=== PATIENT | female | born 2000 | race Caucasian/White ===

== ENCOUNTER 2022-02-23 02:32 | Emergency (ER) | payer BC, SELFPAY ==
[2022-02-23 02:41] VITALS: BP 108/71; PULSE 82; RESP 22; O2SAT 100; BMI 28.8
--- NOTE | 2022-02-23 03:10 | ED.ALCOHOL ---
HPI - Alcohol General Chief Complaint: Alcohol/Intoxication Stated Complaint: Etoh Time Seen by Provider: 02/23/22 02:40 Source: patient and other (Friend) Mode of arrival: ambulatory Limitations: other (Alcohol intoxication) History of Present Illness HPI narrative: 21-year-old female with no notable past medical history presents to the emergency department with alcohol intoxication and abdominal pain. She was at a Halloween green party with friends, drinking excessive amounts of alcohol when she started retching and vomiting, reports that this lasted about 45 minutes, was then followed by abdominal pain. Denies any hematemesis. Feels like it hurts now when she takes a deep breath. Denies any other illicit substance intoxication. Friend is present with her who did accompany her to the green party. States that he had gone outside when he came back and found her vomiting and very intoxicated. She has to come to the emergency department for help with relief of her symptoms. Denies intent of self-harm or ongoing alcoholism. Other than stopping the alcohol, has not tried other interventions to help with symptoms. Past medical history reported only notable for ADHD. Denies any prior surgeries. LMP was about 3 and half weeks ago, expecting her. Within a few days. States her only home medication is Adderall. Denies any allergies. Socially, she does use nicotine, tends to drink only social alcohol Related Data Home Medications Medication Instructions Recorded Confirmed dextroamphetamine-amphetamine 15 02/23/22 mg tablet Allergies Allergy/AdvReac Type Severity Reaction Status Date / Time No Known Drug Allergies Allergy Verified 02/23/22 02:45 Review of Systems Narrative ROS is notable only for the generalized and GI symptoms as described above, otherwise denies times 12. PFSH PFSH Social History Do you use any of these nicotine containing products: Vaping Products How often do you have a drink containing alcohol: monthly or less AUDIT-C Alcohol total score: 1 Non-prescribed substance use: marijuana (any form) Exam Const: Vital Signs, click to edit/add: Vital Signs - 24 hr 02/23/22 02:41 Pulse Rate [Right Pulse Oximeter] 82 Respiratory Rate 22 Blood Pressure [Le ft Upper Arm] 108/71 Pulse Oximetry 100 Oxygen Delivery Me thod Room Air Documenting provider has reviewed patient's vital signs: yes Other: Intoxicated, overweight. Will answer questions appropriately. No respiratory distress or increased work of breathing noted. HENMT: Common normals: normocephalic Head and scalp: normocephalic Mouth: oral and palatal mucosa normal Throat: posterior oropharynx normal Eye: Other: Normal visual gaze and tracking. Neck & C-Spine: Common normals: no lymphadenopathy Resp: Common normals: normal respiratory effort, no use of accessory muscles and clear to auscultation bilaterally Effort & inspection: able to speak in complete sentences Auscultation: clear to auscultation bilaterally Cardio: Common normals: regular rate, regular rhythm, S1 normal heart sound, S2 normal heart sound, no murmurs and peripheral pulses 2+ throughout Rate: regular rate Rhythm: regular rhythm Heart sounds: S1 normal and S2 normal Peripheral pulses: pulses 2+ throughout GI: Common normals: Normal to inspection, nondistended, normoactive bowel sounds present, soft to palpation and no hepatosplenomegaly Palpation: soft and no hepatosplenomegaly Other: Tender to epigastric region but no rebound tenderness nor guarding. Neuro: Speech: speech normal Motor exam: strength 5/5 throughout, no tremor noted and no movement abnormalities noted Psych: Attitude: engaged Mood and affect: euthymic mood Skin: Common normals: no rashes or lesions noted Narrative: No signs of injury or trauma General skin exam: no rashes or lesions noted Course Vital Signs Vital signs: Initial Vital Signs Pulse Rate 82 02/23/22 02:41 Respiratory Rate 22 02/23/22 02:41 Blood Pressure 108/71 02/23/22 02:41 Blood Pressure Mean 83 02/23/22 02:41 Blood Pressure Position Sitting 02/23/22 02:41 Pulse Oximetry 100 02/23/22 02:41 Oxygen Delivery Method 02/23/22 02:41 Vital Signs Pulse Rate 82 02/23/22 02:41 Respiratory Rate 22 02/23/22 02:41 Blood Pressure 108/71 02/23/22 02:41 Pulse Oximetry 100 02/23/22 02:41 Oxygen Delivery Method 02/23/22 02:41 Pulse Rate 82 02/23/22 02:41 Respiratory Rate 22 02/23/22 02:41 Blood Pressure 108/71 02/23/22 02:41 Pulse Oximetry 100 02/23/22 02:41 Oxygen Delivery Method 11/01/22 02:41 MDM - Alcohol MDM Narrative Medical decision making narrative: No signs of breathing impairment, hematemesis or bleeding. Patient can not answer complete questions, moving on her own free will, protecting her airway. Blood work will be beneficial. Offered patient therapeutic interventions such as ibuprofen, Zofran, famotidine. She accepts these. Will reassess an hour of still doing well will be discharged with responsible adult. Patient reassessed 30 minutes after medications, noting improvement of nausea. Would like to stay on rest and let her know that that is not feasible nor appropriate. She can answer appropriate questions, is speaking in full sentences. She has adequate people to stay with her tonight or that she may stay with. She will be discharged home. Discharge Plan Discharge Clinical Impression: Alcoholic intoxication Patient Disposition: Home w/ Parent or Adult Condition: Improved Instructions: Alcohol Intoxication (ED) Additional Instructions: He may continue use of Tylenol and/or ibuprofen for body aches and headache. You may return to work as usual. I do recommend [id number] Prilosec or famotidine for stomach discomfort for the next few days. Okay to use Tums as needed as well. Recheck with her primary care provider if not improving within 2 days. Come back to the ED if your vomiting large amounts of blood, have seizures or unexplained loss of consciousness. Activity Level: No Restrictions Discharge Diet: Regular Prescriptions: No Action dextroamphetamine-amphetamine 15 mg tablet Follow Up/Referrals: Danis Waller MD [Primary Care Provider] - Stand Alone Forms: [employer] Info Instructions
[2022-02-23] MEDS: ONDANSETRON ODT 4 MG TAB PO (03:17)
[2022-02-23] MEDS: FAMOTIDINE 20 MG TABLET PO (03:39)
[2022-02-23 03:55] VITALS: BP 102/80; PULSE 78; RESP 18; O2SAT 98
== END 2022-02-23 04:04 | disposition home or self-care (01) ==
PROVIDERS: Emergency Provider Family Medicine; PCP Surgery
DX: F10.129 Alcohol abuse with intoxication, unspecified (principal); R10.9 Unspecified abdominal pain; F17.290 Nicotine dependence, other tobacco product, uncomplicated
CPT/HCPCS: 99282; 99283; A9270

== ENCOUNTER 2022-03-27 20:46 | Emergency (ER) | payer BC, SELFPAY ==
[2022-03-27 21:17] VITALS: BP 131/74; PULSE 80; RESP 22; TEMP 36.8; O2SAT 97; BMI 27.5
[2022-03-27 21:58] LABS: PCR FLU A Negative PCR FLU A (Negative); PCR FLU B Negative PCR FLU B (Negative); PCR RSV POSITIVE PCR RSV (Negative)
[2022-03-27 22:01] LABS: SARS PCR* Negative SARS-CoV-2 (Negative)
--- NOTE | 2022-03-27 22:03 | CRLHL7_ITS ---
For Patients: As a result of the Cures Act, medical imaging exams and procedure reports are released immediately into your electronic medical record. You may view this report before your referring provider. If you have questions, please contact your health care provider. INDICATION: Cough. TECHNIQUE: Chest 1 views. COMPARISON: October 27, 2019. FINDINGS: Cardiovascular and mediastinum: Heart size and vasculature are normal in caliber and appearance. Lungs and pleural spaces: Lungs are clear. No sign of infiltrate or mass. No sign of pleural effusion. No pneumothorax. Bones and soft tissues: No significant findings. IMPRESSION: No acute findings and no significant changes from the prior exam. Dictated by Benito Casas MD @ 03/27/2022 11:09:01 PM (Electronically Signed)
--- NOTE | 2022-03-27 22:05 | ED.GENADULT ---
HPI - General Adult General Chief complaint: Cough Stated complaint: Coughing up flem causing gagging, Fogginess Time Seen by Provider: 03/27/22 21:50 History of Present Illness HPI narrative: 21-year-old young woman presenting here with significant other with complaint of cough and just generally feeling unwell. Thick phlegm she keeps coughing up. This is after she has somewhat crackly in her lungs. Coughing this up then diminishes for a while but then it comes back. Prompts her to gag. General sense of nausea though. Sixth day of illness or so. Thought had gotten better a couple days ago and now worse. Seen in urgent care yesterday testing negative for influenza and COVID. She is quite thirsty. Has a headache. Mom think she needs fluids IV fluids. Mom thinks she has bronchitis. No chest pain. Feels like vision is foggy. Related Data Home Medications Medication Instructions Recorded Confirmed dextroamphetamine-amphetamine 15 02/23/22 03/27/22 mg tablet Previous Rx's Medication Instructions Recorded benzonatate 200 mg capsule 200 mg PO BID-TID PRN cough #14 03/27/22 caps Allergies Allergy/AdvReac Type Severity Reaction Status Date / Time No Known Drug Allergies Allergy Verified 03/27/22 12:21 Review of Systems Status of ROS: Reports: 10 or more systems reviewed and unremarkable except as noted in History and below [facility] Social History Smoking Status: Never smoker Do you use any of these nicotine containing products: Vaping Products How often do you have a drink containing alcohol: monthly or less AUDIT-C Alcohol total score: 1 Non-prescribed substance use: marijuana (any form) Exam Narrative: Exam Narrative: Pleasant. NAD. Regular cough. Talkative. [place] hair. Cranial nerves 2-12 intact. Does sound congested in the nasopharynx. No facial swelling erythema or tenderness. Oropharynx is sticky. Mildly erythematous. No exudate or asymmetry. Lungs with inspiratory crepitus in left greater than right bases. Generally tender abdomen causing her to wince extremely. Extremities are without edema. Well perfused. Neck is supple. A little sore in the trapezial and paracervical musculature. Const: Vital Signs, click to edit/add: Vital Signs - 24 hr 03/27/22 21:17 Temperature 98.2 F Pulse Rate [Pulse Oximeter] 80 Respiratory Rate 22 Blood Pressure [Ri ght Upper Arm] 131/74 Pulse Oximetry 97 Documenting provider has reviewed patient's vital signs: yes Course Vital Signs Vital signs: Initial Vital Signs Temperature 98.2 F 03/27/22 21:17 Temperature Source Temporal Artery Scan 03/27/22 21:17 Pulse Rate 80 03/27/22 21:17 Respiratory Rate 22 03/27/22 21:17 Blood Pressure 131/74 03/27/22 21:17 Blood Pressure Mean 93 03/27/22 21:17 Blood Pressure Position Sitting 03/27/22 21:17 Pulse Oximetry 97 03/27/22 21:17 Vital Signs Temperature 98.2 F 03/27/22 21:17 Pulse Rate 80 03/27/22 21:17 Respiratory Rate 22 03/27/22 21:17 Blood Pressure 131/74 03/27/22 21:17 Pulse Oximetry 97 03/27/22 21:17 Temperature 98.2 F 03/27/22 21:17 Pulse Rate 80 03/27/22 21:17 Respiratory Rate 22 03/27/22 21:17 Blood Pressure 131/74 03/27/22 21:17 Pulse Oximetry 97 03/27/22 21:17 Medical Decision Making MDM Narrative Medical decision making narrative: Appears vitally well. Triple screen indeed positive for RSV. This had not been screened apparently prior. Chest x-ray by my read looks unremarkable. After some IV hydration she reports feeling markedly improved. Is even more energetic. Lab Data Labs: Lab Results 03/27/22 Range/Units 21:12 SARS-CoV-2 (PCR) Negative SARS-CoV-2 (Negative) Influenza Type A (PCR) Negative PCR FLU A (Negative) Influenza Type B (PCR) Negative PCR FLU B (Negative) RSV (PCR) POSITIVE PCR RSV A (Negative) Discharge Plan Discharge Clinical Impression: Respiratory syncytial virus (RSV) bronchiolitis, Dehydration Patient Disposition: Home w/ Parent or Adult Condition: Improved Additional Instructions: Focus on hydration. Sleeping under the mist of a cool mist humidifier might be helpful. Menthol vapors. Zofran and prednisone from [facility]. Prescriptions: No Action benzonatate 200 mg capsule 200 mg PO BID-TID PRN (Reason: cough) Qty: 14 0RF dextroamphetamine-amphetamine 15 mg tablet Follow Up/Referrals: Danis Waller MD [Primary Care Provider] - Stand Alone Forms: [employer] Info Instructions
[2022-03-27] MEDS: IBUPROFEN 200 MG TABLET 600 MG PO (22:33)
[2022-03-27] MEDS: ONDANSETRON 2 MG/ML inj 4 MG IVP (22:33)
[2022-03-27] MEDS: 0.9 % SODIUM CHLORIDE 1000 ml 1,000 ML IV (22:33)
--- OUTSIDE RECORDS SUMMARY | 2022-03-27 22:39 | XMS_ITS | Encounter Summary ---
:2000 Author Organization [facility] Address [address] [place] [id number] Care Team Providers Name Role Phone No Ref-Primary, Physician Primary Care Provider [phone] Reason for Visit Diagnostic Imaging XR (Routine) - Pending Review Specialty Diagnoses / Procedures Referred By Contact Refer red To Contact Diagnoses Katy Moreno MD Procedures XR Chest [address] [facility] [address] [place], [place] [address] Referral ID Status Reason Start Date Expiration Date Visits V isits Requested Authorized [id number] Pending 04/06/2021 04/06/2022 1 1 Review Encounter Details Date Type Department Care Team Description 04/06/2021 Ancillary Procedure [facility] Katy Riley MD [place] [address] [place] [id number] [facility] [address] [place] [address] [place], [place] [phone] [id number] Social History Tobacco Use Types Packs/Day Years Used Date Smoking Tobacco: Never Smokeless Tobacco: Never Alcohol Use Standard Drinks/Week Comments Not Currently 0 (1 standard drink = 0.6 oz pure alcoho l) Sex Assigned at Date Recorded Not on file COVID-19 Exposure Response Date Recorded In the last month, have you been in contact with No / Unsure 04/06/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 documented as of this encounter Plan of Treatment Not on filedocumented as of this encounter Procedures Procedure Name Priority Date/Time Associated Diagnosis Comme nts XR CHEST 2 VIEWS Routine 04/06/2021 9:07 PM [place] Resul ts for this LINKING MACHINE OPERATOR procedure are i n the results section. documented in this encounter Results XR Chest 2 Views (04/06/2021 9:07 PM LINKING MACHINE OPERATOR) Anatomical Region Laterality Modality Chest Computed Radiography Specimen (Source) Anatomical Collection Method Collection Time Re ceived Time Location / / Volume Laterality 04/06/2021 8:54 PM LINKING MACHINE OPERATOR Impressions 04/06/2021 9:30 PM LINKING MACHINE OPERATOR IMPRESSION: Negative chest. Narrative 04/06/2021 9:30 PM LINKING MACHINE OPERATOR EXAM: XR CHEST 2 VW LOCATION: [facility] DATE/TIME: 04/06/2021 8:54 PM INDICATION: ??Chills COMPARISON: None. Procedure Note Ananda Bill MD - 04/06/2021Formatt ing of this note might be different from the original. EXAM: XR CHEST 2 VW LOCATION: [facility] DATE/TIME: 04/06/2021 8:54 PM INDICATION: Chills COMPARISON: None. IMPRESSION: Negative chest. Katy Borjas MD IMG DIAGNOSTIC IMAGING ORDER BARRY documented in this encounter Visit Diagnoses Diagnosis Chills Chills (without fever) documented in this encounter Additional Health Concerns Infection Onset Date Last Indicated Resolved Time Rule Out COVID-19 04/06/2021 04/06/2021 04/08/2021 10: 41 AM LINKING MACHINE OPERATOR documented as of this encounter Care Teams Street Light Servicer Relationship Specialty Start Date End Date No Ref-Primary, Physician PCP - General 04/06/21 documented as of this encounter
--- OUTSIDE RECORDS SUMMARY | 2022-03-27 22:39 | XMS_ITS | Encounter Summary ---
:2000 Author Organization [facility] Address [address] [facility] [place] [address] Care Team Providers Name Role Phone No Ref-Primary, Physician Primary Care Provider [phone] Reason for Referral Diagnostic Imaging XR (Routine) - Pending Review Specialty Diagnoses / Procedures Referred By Contact Refer red To Contact Diagnoses Katy Moreno MD Procedures XR Chest 2 Views [address] [place], [place] [address] Referral ID Status Reason Start Date Expiration Date Visits V isits Requested Authorized [id number] Pending 04/06/2021 04/06/2022 1 1 Review AINER FINISHING INSPECTOR Reason for Visit Reason Comments URI Chest Pain tightness Encounter Details Date Type Department Care Team Description 04/06/2021 Office Visit [facility] Katy Borjas, Fatigue , unspecified type (Primary Dx); Urgent Care Candis crawford MD SOB (shortness of breath); [address] Chest pain on breathing; [place], [place] [address] [place]; [address] [place], [place] Cold sweat [phone] [id number] Social History Tobacco Use Types Packs/Day Years Used Date Smoking Tobacco: Never Smokeless Tobacco: Never Alcohol Use Standard Drinks/Week Comments Not Currently 0 (1 standard drink = 0.6 oz pure alcoho l) Sex Assigned at Date Recorded Not on file COVID-19 Exposure Response Date Recorded In the last month, have you been in contact with No / Unsure 04/06/2021 7:45 PM CONTAINER FINISHING INSPECTOR someone who was confirmed or suspected to have Coronavirus / COVID-19? documented as of this encounter Last Filed Vital Signs Vital Sign Reading Time Taken Comments Blood Pressure 120/60 04/06/2021 8:36 PM CONTAINER FINISHING INSPECTOR Pulse 83 04/06/2021 8:36 PM CONTAINER FINISHING INSPECTOR Temperature 36.9 ??C (98.5 ??F) 04/06/2021 8:36 PM CONTAINER FINISHING INSPECTOR Respiratory Rate 16 04/06/2021 8:36 PM CONTAINER FINISHING INSPECTOR Oxygen Saturation 99% 04/06/2021 8:36 PM CONTAINER FINISHING INSPECTOR Inhaled Oxygen Concentration - - Weight 92.2 kg (203 lb 4.8 oz) 04/06/2021 8:36 PM CONTAINER FINISHING INSPECTOR Height - - Body Mass Index - - documented in this encounter Progress Notes Katy Borjas MD - 04/06/2021 8:15 PM CST Chief Complaint Patient presents with ??? URI ??? Chest Pain tightness Initial differential diagnosis included but was not restricted to Differential Diagnosis: URI Adult/Peds: Bronchitis-viral, Influenza, Pneumonia, Viral pharyngitis, Viral syndrome and Viral upper respiratory illness, costochondritis, Medical Decision Making: ASSESMENT AND PLAN Agustina was seen today for uri and chest pain. Diagnoses and all orders for this visit: Fatigue, unspecified type - XR Chest 2 Views SOB (shortness of breath) - XR Chest 2 Views Chest pain on breathing Chills - XR Chest 2 Views; Future - CBC with platelets and differential; Future - ESR: Erythrocyte sedimentation rate; Future - CBC with platelets and differential - ESR: Erythrocyte sedimentation rate Cold sweat Other orders - Symptomatic COVID-19 Virus (Coronavirus) by PCR Nose - Influenza A/B antigen Tylenol, Fluids and Rest Routine discharge counseling was given to the patient and the patient understands that worsening, changing or persistent symptoms should prompt an immediate call or follow up with their primary physician or the emergency department. The importance of appropriate follow up was also discussed with the patient. I have reviewed the nursing notes. Review of the result(s) of each unique test - X-Ray was done, my findings are: no infiltrate noted Time spent on the date of the encounter doing chart review, review of test results, interpretation of tests, patient visit and documentation see orders in Epic Pt verbalized and agreed with the plan and is aware of the worsening symptoms for which would need to follow up . Pt was stable during time of discharge from the clinic SUBJECTIVE Agustina Castro is a 20 year old female presenting with a chief complaint of Chief Complaint Patient presents with ??? URI ??? Chest Pain tightness Agustina Castro is a 20 year old female presenting with a chief complaint of chest pain for 2 days On and off now all the time , hs some chills , some brain fog . She is an established patient of [facility]. Onset of symptoms was 2 day(s) ago. He also describes some mid chest pain which she describes more like chest tightness. Has been also noticing some chills for last 2 days. Have history of Covid a yearback. Course of illness is worsening. Severity moderate Current and Associated symptoms: chills Treatment measures tried include None tried. Predisposing factors include None. No past medical history on file. No current outpatient medications on file. Social History Tobacco Use ??? Smoking status: Never Smoker ??? Smokeless tobacco: Never Used Substance Use Topics ??? Alcohol use: Not Currently No family history on file. ROS: 10 point ROS of systems including Constitutional, Eyes,Cardiovascular, Gastroenterology, Genitourinary, Integumentary, Psychiatric ,neurological were all negative except for pertinent positives noted in my HPI OBJECTIVE: BP 120/60 (BP Location: Right arm, Patient Position: Chair, Cuff Size: Adult Large) Pulse 83 Temp 98.5 ??F (36.9 ??C) (Oral) Resp 16 Wt 92.2 kg (203 lb 4.8 oz) SpO2 99% GENERAL APPEARANCE: healthy, alert and no distress EYES: EOMI, PERRL, conjunctiva clear HENT: ear canals and TM's normal. Nose and mouth without ulcers, erythema or lesions NECK: supple, nontender, no lymphadenopathy RESP: lungs clear to auscultation - no rales, rhonchi or wheezes CV: regular rates and rhythm, normal S1 S2, no murmur noted PSYCH: mentation appears normal Physical Exam (Note was completed, in part, with [employer] voice-recognition software. Documentation reviewed, but some grammatical, spelling, and word errors may remain.) Katy Borjas MD on 04/06/2021 at 9:08 PM AINER FINISHING INSPECTOR documented in this encounter Plan of Treatment Not on filedocumented as of this encounter Procedures Procedure Name Priority Date/Time Associated Comments Diagnosis CBC WITH PLATELETS AND Routine 04/06/2021 9:10 PM [place] Results for this DIFFERENTIAL CONTAINER FINISHING INSPECTOR procedure are i n the results section. CBC WITH PLATELETS & Routine 04/06/2021 9:10 PM [place] R esults for this DIFFERENTIAL CONTAINER FINISHING INSPECTOR procedure are i n the results section. ERYTHROCYTE Routine 04/06/2021 9:10 PM [place] Results f or this SEDIMENTATION RATE CONTAINER FINISHING INSPECTOR procedure are in AUTO the results section. INFLUENZA A/B ANTIGEN Routine 04/06/2021 8:39 PM Results for this CONTAINER FINISHING INSPECTOR procedure are i n the results section. COVID-19 VIRUS Routine 04/06/2021 8:38 PM Results for this (CORONAVIRUS) BY PCR CONTAINER FINISHING INSPECTOR procedu re are in the results section. documented in this encounter Results CBC with platelets and differential (04/06/2021 9:10 PM CONTAINER FINISHING INSPECTOR) P athologist Signature WBC Count 7.3 4.0 - 11.0 04/06/2021 [facility] 10e3/uL 9:14 PM CONTAINER FINISHING INSPECTOR RBC Count 4.36 3.80 - 04/06/2021 [facility] 5.20 9:14 PM CONTAINER FINISHING INSPECTOR 10e6/uL Hemoglobin 13.2 11.7 - 04/06/2021 [facility] 15.7 g/dL 9:14 PM CONTAINER FINISHING INSPECTOR Hematocrit 40.1 35.0 - 04/06/2021 [facility] 47.0 % 9:14 PM CONTAINER FINISHING INSPECTOR MCV 92 78 - 100 04/06/2021 [facility] fL 9:14 PM CONTAINER FINISHING INSPECTOR MCH 30.3 26.5 - 04/06/2021 [facility] 33.0 pg 9:14 PM CONTAINER FINISHING INSPECTOR MCHC 32.9 31.5 - 04/06/2021 [facility] 36.5 g/dL 9:14 PM CONTAINER FINISHING INSPECTOR RDW 13.0 10.0 - 04/06/2021 [facility] 15.0 % 9:14 PM CONTAINER FINISHING INSPECTOR Platelet Count 218 150 - 450 04/06/2021 [facility] 10e3/uL 9:14 PM CONTAINER FINISHING INSPECTOR % Neutrophils 62 % 04/06/2021 [facility] 9:14 PM CONTAINER FINISHING INSPECTOR % Lymphocytes 29 % 04/06/2021 [facility] 9:14 PM CONTAINER FINISHING INSPECTOR % Monocytes 6 % 04/06/2021 [facility] 9:14 PM CONTAINER FINISHING INSPECTOR % Eosinophils 3 % 04/06/2021 [facility] 9:14 PM CONTAINER FINISHING INSPECTOR % Basophils 0 % 04/06/2021 [facility] 9:14 PM CONTAINER FINISHING INSPECTOR Absolute 4.5 1.6 - 8.3 04/06/2021 [facility] Neutrophils 10e3/uL 9:14 PM CONTAINER FINISHING INSPECTOR Absolute 2.1 0.8 - 5.3 04/06/2021 [facility] Lymphocytes 10e3/uL 9:14 PM CONTAINER FINISHING INSPECTOR Absolute 0.4 0.0 - 1.3 04/06/2021 [facility] Monocytes 10e3/uL 9:14 PM CONTAINER FINISHING INSPECTOR Absolute 0.2 0.0 - 0.7 04/06/2021 [facility] Eosinophils 10e3/uL 9:14 PM CONTAINER FINISHING INSPECTOR Absolute 0.0 0.0 - 0.2 04/06/2021 [facility] Basophils 10e3/uL 9:14 PM CONTAINER FINISHING INSPECTOR Specimen Anatomical Collection Method / Collection Time Recei nicki Time (Source) Location / Volume Laterality Blood STRUCTURE OF RIGHT Venipuncture / 04/06/2021 9:10 03/25 9:10 UPPER LIMB / Unknown PM CONTAINER FINISHING INSPECTOR PM CONTAINER FINISHING INSPECTOR Unknown Katy Borjas MD LAB - BLOOD ORDERABLES Performing Organization Address City/State/ZIP Code [place] [address] Lab [address] [facility] (no room number, 1st floor of clinic) [place] [address], [facility] [address] [facility] (no room number, 1st floor of clinic) ESR: Erythrocyte sedimentation rate (04/06/2021 9:10 PM CONTAINER FINISHING INSPECTOR) [facility] gist Method Time Signature Erythrocyte 6 0 - 20 04/06/2021 [facility] Sedimentation Rate mm/hr 9:21 PM CONTAINER FINISHING INSPECTOR Specimen Anatomical Collection Method / Collection Time Recei nicki Time (Source) Location / Volume Laterality Blood STRUCTURE OF RIGHT Venipuncture / 04/06/2021 9:10 03/25 9:10 UPPER LIMB / Unknown PM CONTAINER FINISHING INSPECTOR PM CONTAINER FINISHING INSPECTOR Unknown Katy Borjas MD LAB - BLOOD ORDERABLES Performing Organization Address City/State/ZIP Code Phon e Number [facility] [place] [address] Lab [address] [facility] (no room number, 1st floor of clinic) [place] [address], [facility] [address] [facility] (no room number, 1st floor of clinic) XR Chest 2 Views (04/06/2021 9:07 PM CONTAINER FINISHING INSPECTOR) Anatomical Region Laterality Modality Chest Computed Radiography Specimen (Source) Anatomical Collection Method Collection Time Re ceived Time Location / / Volume Laterality 04/06/2021 8:54 PM CONTAINER FINISHING INSPECTOR Impressions 04/06/2021 9:30 PM CONTAINER FINISHING INSPECTOR IMPRESSION: Negative chest. Narrative 04/06/2021 9:30 PM CONTAINER FINISHING INSPECTOR EXAM: XR CHEST 2 VW LOCATION: [facility] DATE/TIME: 04/06/2021 8:54 PM INDICATION: ??Chills COMPARISON: None. Procedure Note Ananda Bill MD - 04/06/2021Formatt ing of this note might be different from the original. EXAM: XR CHEST 2 VW LOCATION: [facility] DATE/TIME: 04/06/2021 8:54 PM INDICATION: Chills COMPARISON: None. IMPRESSION: Negative chest. Katy Borjas MD IMG DIAGNOSTIC IMAGING ORDER BARRY Influenza A/B antigen (04/06/2021 8:39 PM CONTAINER FINISHING INSPECTOR) Analysis Performed At Patho logist Time Signature Influenza A Negative Negative 04/06/2021 [facility] antigen 9:05 PM CONTAINER FINISHING INSPECTOR Influenza B Negative Negative 04/06/2021 [facility] antigen 9:05 PM CONTAINER FINISHING INSPECTOR Specimen Anatomical Collection Method Collection Time Receive d Time (Source) Location / / Volume Laterality Swab NASAL STRUCTURE / Non-blood 04/06/2021 8:39 PM 03/25 8:48 Unknown Collection / CONTAINER FINISHING INSPECTOR PM CONTAINER FINISHING INSPECTOR Unknown Narrative [facility] - 04/06/2021 9:05 PM CONTAINER FINISHING INSPECTOR Test results must be correlated with cli nical data. If necessary, results should be confirmed by a molecular assay or viral culture. Katy Borjas MD LAB - MICRO GENERAL ORDERABL ES Performing Organization Address City/State/ZIP Code Phon e Number LABORATORY [facility] [address] Lab [address] [facility] (no room number, 1st floor of clinic) [place] [address], [facility] [address] [facility] (no room number, 1st floor of clinic) Symptomatic COVID-19 Virus (Coronavirus) by PCR Nose (04/06/2021 8:38 PM CONTAINER FINISHING INSPECTOR) [facility] Method Time Signature SARS CoV2 PCR Negative Negative, 04/08/2021 [facility] Testing sent to 10:41 AM LABORATORY reference lab. CONTAINER FINISHING INSPECTOR Results will be returned via unsolicited result Comment: NEGATIVE: SARS-CoV-2 (COVID-19) RNA not detected, presumed negative. Specimen Anatomical Collection Method Collection Time Receive d Time (Source) Location / / Volume Laterality Swab NASAL STRUCTURE / Non-blood 04/06/2021 8:38 PM 03/25 8:53 Unknown Collection / CONTAINER FINISHING INSPECTOR PM CONTAINER FINISHING INSPECTOR Unknown Narrative [facility] - 04/08/2021 10:41 AM CONTAINER FINISHING INSPECTOR Testing was performed using the james SARS-CoV-2 assay on the james [id number] System. This test should be ordered for the detection of SARS-CoV-2 in individuals who meet SARS- CoV-2 clinical and/or epidemiological criteria. Test performan ce is unknown in asymptomatic patients. This test is for in vitro diag nostic use under the FDA EUA for laboratories certified under CLIA to perform high and/or moderate complexity testing. This test has not be en FDA cleared or approved. A negative result does not rule out the pr esence of PCR inhibitors in the specimen or target RNA in concentrat ion below the limit of detection for the assay. The possibility of a false negative should be considered if the patient's recent ex posure or clinical presentation suggests COVID-19. This phani t was validated by the [facility] Infectious Diseases Diag nostic Laboratory. This laboratory is certified under the Clinic al Laboratory Improvement Amendments of 1988 (CLIA-88) as qualifie d to perform high and/or moderate complexity laboratory testing. Katy Borjas MD LAB - MICRO GENERAL ORDERABL ES Performing Organization Address City/State/ZIP Code Phon e Number [facility] [place] [address] Diag. Lab [address] [facility] [place], [address] [facility] Infectious [place], [place] [phone] Diseases Diagnostic [id number], [facility] Lab ([facility]DL) [address] [facility], [address] documented in this encounter Visit Diagnoses Diagnosis Fatigue, unspecified type - Primary SOB (shortness of breath) Shortness of breath Chest pain on breathing Painful respiration Chills Chills (without fever) Cold sweat Chills Chills (without fever) documented in this encounter Additional Health Concerns Infection Onset Date Last Indicated Resolved Time Rule Out COVID-19 04/06/2021 04/06/2021 04/08/2021 10: 41 AM CONTAINER FINISHING INSPECTOR documented as of this encounter Care Teams Factory Assembler Relationship Specialty Start Date End Date No Ref-Primary, Physician PCP - General 04/06/21 documented as of this encounter
--- OUTSIDE RECORDS SUMMARY | 2022-03-27 22:39 | XMS_ITS | Encounter Summary ---
:2000 Author Organization [facility] Address [address] [place] [address] Care Team Providers Name Role Phone No Ref-Primary, Physician Primary Care Provider [phone] Encounter Details Date Type Department Care Team Description 04/06/2021 Travel Social History Tobacco Use Types Packs/Day Years Used Date Smoking Tobacco: Never Smokeless Tobacco: Never Alcohol Use Standard Drinks/Week Comments Not Currently 0 (1 standard drink = 0.6 oz pure alcoho l) Sex Assigned at Date Recorded Not on file COVID-19 Exposure Response Date Recorded In the last month, have you been in contact with No / Unsure 04/06/2021 7:45 PM MOLD BUNCH TRIMMER someone who was confirmed or suspected to have Coronavirus / COVID-19? documented as of this encounter Plan of Treatment Not on filedocumented as of this encounter Visit Diagnoses Not on filedocumented in this encounter Additional Health Concerns Infection Onset Date Last Indicated Resolved Time Rule Out COVID-19 04/06/2021 04/06/2021 04/08/2021 10: 41 AM MOLD BUNCH TRIMMER documented as of this encounter Care Teams Stemhole Borer And Topper Relationship Specialty Start Date End Date No Ref-Primary, Physician PCP - General 04/06/21 documented as of this encounter
--- OUTSIDE RECORDS SUMMARY | 2022-03-27 22:39 | XMS_ITS | Clinical Summary ---
:2000 Author Organization [facility] Address [address] [place] [address] Care Team Providers Name Role Phone No Ref-Primary, Physician Primary Care Provider [phone] Allergies No known active allergies Medications No known medications Social History Tobacco Use Types Packs/Day Years Used Date Smoking Tobacco: Never Smokeless Tobacco: Never Alcohol Use Standard Drinks/Week Comments Not Currently 0 (1 standard drink = 0.6 oz pure alcoho l) Sex Assigned at Date Recorded Not on file Last Filed Vital Signs Vital Sign Reading Time Taken Comments Blood Pressure 120/60 04/06/2021 8:36 PM GOLF CLUB REPAIRER Pulse 83 04/06/2021 8:36 PM GOLF CLUB REPAIRER Temperature 36.9 ??C (98.5 ??F) 04/06/2021 8:36 PM GOLF CLUB REPAIRER Respiratory Rate 16 04/06/2021 8:36 PM GOLF CLUB REPAIRER Oxygen Saturation 99% 04/06/2021 8:36 PM GOLF CLUB REPAIRER Inhaled Oxygen Concentration - - Weight 92.2 kg (203 lb 4.8 oz) 04/06/2021 8:36 PM GOLF CLUB REPAIRER Height - - Body Mass Index - - Plan of Treatment Health Maintenance Due Date Last Done Comments ADVANCE CARE PLANNING 2000 ANNUAL REVIEW OF HM ORDERS 2000 CHLAMYDIA SCREENING 2000 YEARLY PREVENTIVE VISIT 2000 COVID-19 Vaccine (#1) 02/24/2001 HEPATITIS B IMMUNIZATION (3 08/31/2002 07/05/2002, of 3 - 3-dose series) 05/11/2002 DTAP/TDAP/TD IMMUNIZATION (2 02/03/2010 01/06/2010 - Td or Tdap) HPV IMMUNIZATION (1 - 2-dose 08/25/2011 series) HIV SCREENING 08/25/2015 HEPATITIS C SCREENING 2018 PHQ-2 (once per calendar 04/25/2021 year) PAP 2021 INFLUENZA VACCINE (#1) 2021 IPV IMMUNIZATION Aged Out 07/05/2002, No longer eligi ble based 05/11/2002, on patient's age to 05/10/2001 complete this to pic MENINGITIS IMMUNIZATION Aged Out No longe r eligible based on patient's age to complete this to pic Pneumococcal Vaccine: Aged Out No longer eligible based Pediatrics (0 to 5 Years) and on patient's age to At-Risk Patients (6 to 64 comple te this topic Years) Insurance Payer Benefit Plan / Subscriber ID Effective Dates Phone Addre ss Type Group [place] [id number] 2020-Present [phone] [address] [address] [place] [address] Care Teams Compressor Station Chief Engineer Relationship Specialty Start Date End Date No Ref-Primary, Physician PCP - General 04/06/21
--- OUTSIDE RECORDS SUMMARY | 2022-03-27 22:40 | XMS_ITS | Clinical Summary ---
:2000 Author Organization [facility] [place] [address] Care Team Providers Name Role Phone Danis Waller MD Primary Care Provider Allergies No known active allergies Medications Medication Sig Dispensed Refills Start Date End Date Status copper Inject 1 Device 0 08/14/2020 Act estiven intrauterine intrauterine one device (PARAGARD) time. Amphetamine-Dextro Take 1 tablet by 60 Tablet 0 10/09/2021 Active amphetamine mouth 2 times (ADDERALL) 15 mg daily tabletIndications: Attention deficit hyperactivity disorder (ADHD), unspecified ADHD type ketoconazole 2% Shampoo the hair 120 mL 0 10/15/2021 Active shampoo (NIZORAL) thoroughly each 2 % day for 3 days. shampooIndications : Tinea versicolor Amphetamine-Dextro TAKE ONE TABLET 60 Tablet 0 05/23/2022 Active amphetamine BY MOUTH TWICE (ADDERALL) 15 mg DAILY tabletIndications: Attention deficit hyperactivity disorder (ADHD), unspecified ADHD type Amphetamine-Dextro Take 1 tablet by 60 Tablet 0 03/24/2022 Active amphetamine mouth 2 times 2 (ADDERALL) 15 mg daily tabletIndications: Attention deficit hyperactivity disorder (ADHD), unspecified ADHD type Amphetamine-Dextro Take 1 tablet by 60 Tablet 0 04/23/2022 Active amphetamine mouth 2 times 3 (ADDERALL) 15 mg daily tabletIndications: Attention deficit hyperactivity disorder (ADHD), unspecified ADHD type Amphetamine-Dextro Take 1 tablet by 60 Tablet 0 02/19/2022 Discontinued amphetamine mouth 2 times 2 (ADDERALL) 15 mg daily tabletIndications: Attention deficit hyperactivity disorder (ADHD), unspecified ADHD type Active Problems Problem Noted Date Attention deficit hyperactivity disorder (ADHD) 2021 ASCUS with positive high risk HPV cervical 11/06/2021 Overview: 11/06/21 ASCUS/HPV+, 16/18 negative. Plan : Pap due 10/2022 Disordered eating 02/15/2018 Resolved Problems Problem Noted Date Resolved Date Pica 02/15/2018 11/06/2021 Encounters Date Type Specialty Care Team Description 03/24/2022 Refill Danis Waller MD Refi ll Request (Amphetamine-de xtroamphetami ne) 03/03/2022 Office Visit Joanna Pack, Screen ing (new partner) PA 03/03/2022 Travel from Last 3 Months Immunizations Name Administration Dates Next Due DT (Age < 7 years) 07/20/2002, 05/25/2002, 10/09/2001 HIB PRP-OMP (PedvaxHIB) 05/10/2001 HIB-HepB (Comvax) 07/05/2002, 05/11/2002 Hib Conjugate, Unspecified 07/05/2002, 05/11/2002 Inactivated Polio Vaccine 07/05/2002, 05/11/2002, 05/10/2001 MMR 09/03/2002 Td, Preservative Free (age >= 7 Years) 01/06/2010, 0 Family History Medical History Relation Name Comments ADD / ADHD Brother 1 Asperger's syndrome Brother 1 Asperger's syndrome Brother 2 Asthma Brother 2 ADD / ADHD Brother 3 Seizures Brother 4 Asperger's syndrome Brother 5 ADD / ADHD Sister 1 Asperger's syndrome Sister 1 Multiple sclerosis Sister 1 PTSD Sister 1 Relation Name Status Comments Brother 1 Alive Brother 2 Alive Brother 3 Alive Brother 4 Alive Brother 5 Alive Father Alive Mother Alive Sister 1 Alive Sister 2 Alive Social History Tobacco Use Types Packs/Day Years Used Date Never Smoker Smokeless Tobacco: Never Used Tobacco Cessation: Counseling Given: Yes Alcohol Use Standard Drinks/Week Comments Yes 0 (1 standard drink = 0.6 oz pure alcoho l) Sex Assigned at Date Recorded Not on file COVID-19 Exposure Response Date Recorded In the last 10 days, have you been in contact with No / Unsu re 03/03/2022 1:15 PM [employer] someone who was confirmed or suspected to have Coronavirus/COVID-19? Obstetrics History Para Term AB IAB SAB Ectopic Multiple Living Live Births 0 0 0 0 0 0 0 0 0 0 0 Last Filed Vital Signs Vital Sign Reading Time Taken Comments Blood Pressure 108/74 03/03/2022 1:43 PM [employer] Pulse 84 03/03/2022 1:20 PM [employer]AT DES[employer] Temperature 36.8 ??C (98.2 ??F) 12/01/2021 2:43 PM CDT Respiratory Rate 18 01/06/2010 1:20 PM CDT Oxygen Saturation 98% 03/03/2022 1:20 PM [employer]AT DES[employer] Inhaled Oxygen Concentration - - Weight 78 kg (172 lb) 03/03/2022 1:20 PM [employer]AT DES[employer] Height 167.5 cm (5' 5.95) 11/06/2021 4:40 PM CDT Body Mass Index 27.81 11/06/2021 4:40 PM CDT Plan of Treatment Health Maintenance Due Date Last Done Comments COVID-19 vaccine series (#1) 02/24/2001 HPV series for age 9-26 (1 - 08/25/2011 2-dose series) Tdap 08/25/2011 Tetanus booster 2020 01/06/2010, 01/06/2010 Influenza for age 9-49 12/24/2021 BMI (ht and wt on same day) 11/06/2022 11/06/2021, 08/15/19 21, for age 18+ 01/19/2019, Additional history exists Depression screening for age 0711/06/2022 11/06/2021, 022, 12+ 05/19/2021, Additional history exists Pap test for age 21-65 11/06/2022 11/06/2021, 11/06/2021 Chlamydia for age 16-24 03/03/2023 03/03/2022, 11/06/2021, 01/05/2019, Additional history exists Hepatitis C screening for Completed 11/06/2021, 01/12/2018 age 18-79 HIV for age 15-65 Completed 03/03/2022, 11/06/2021, 01/12/2018 Meningococcal series for age Aged Out No longer eligible 11-21 based on patient 's age to complete this topic Procedures Procedure Name Priority Date/Time Associated Diagnosis Comme nts GC CHLAMYDIA TRACH Routine 03/03/2022 2:01 PM Screen for STD R esults for this PROBE [employer] DES[employer]ER (sexually procedure are i n transmitted disease) the res ults section. ANTI HIV 1/2 Routine 03/03/2022 1:49 PM Screen for STD Results for this [employer] DESIGNER (sexually procedure are i n transmitted disease) the res ults section. TREPONEMA PALLIDUM Routine 03/03/2022 1:49 PM Screen for STD R esults for this BO[employer] DESIGNER (sexually procedure are i n transmitted disease) the res ults section. from Last 3 Months Results GC CHLAMYDIA - Urine (03/03/2022 2:01 PM BOAT DESIGNER) Patholo gist Method Time Signature CHLAMYDIA PROBE Negative 03/04/2022 [facility] 2:32 AM BOAT DESIGNER [facility] N GONORRHOEAE Negative 03/04/2022 [employer] [facility] PRO[facility] 2:32 AM BOAT DESIGNER [facility] Specimen Anatomical Collection Method Collection Time Receive d Time (Source) Location / / Volume Laterality Other URINE SPECIMEN / Non-Blood / 03/03/2022 2:01 PM 03/03 2:01 Unknown Unknown BOAT DESIGNER PM [employer] DESIGNER [facility] Performing Organization Address City/State/ZIP Code Phon e Number [id number] [place] [address] [facility] 2000 LABORATORY TREPONEMA PALLIDUM (03/03/2022 1:49 PM BOAT DESIGNER) Analysis Performed At Patho logist Time Signature TREPONEMA Negative Negative 03/04/2022 [facility] 9:25 AM BOAT DESIGNER [facility] Specimen Anatomical Collection Method / Collection Time Recei nicki Time (Source) Location / Volume Laterality Blood BLOOD SPECIMEN / Venipuncture / 03/03/2022 1:49 2021 1:52 Unknown Unknown PM BOAT DESIGNER PM BO[employer] DESIGNER Jo[facility] Performing Organization Address City/State/ZIP Code Phon e Number [id number] [place] [address] [facility] 1999 LABORATORY ANTI HIV 1/2 (03/03/2022 1:49 PM BOAT DESIGNER) [facility] Method Time Signature HIV-1/HIV-2 Non-Reacti Non-Reacti 03/05/2022 [employer] ANTIBODY ve ve 4:45 AM BOAT DESIGNER [facility] Comment: HIV-1 p24 and HIV-1/HIV-2 Ab no t detected. Specimen Anatomical Collection Method / Collection Time Recei nicki Time (Source) Location / Volume Laterality Blood BLOOD SPECIMEN / Venipuncture / 03/03/2022 1:49 2021 1:52 Unknown Unknown PM BOAT DESIGNER PM BOAT DESIGNER Joanna [facility] Performing Organization Address City/State/ZIP Code Phon e Number [facility] [id number] [place] [address] [facility] 1999 LABORATORY from Last 3 Months Insurance Payer Benefit Plan / Subscriber ID Effective Dates Phone Addre ss Type Group [employer] OF [id number] 2014-Present [address] [address] [place] [address] [employer] OF [id number] 2014-Present [address] [address] [place] [address] Care Teams [facility] Associate Professor Relationship Specialty Start Date End Date Danis Waller MD PCP - General Family Practice 12/31/13 [address] [place] [address]
== END 2022-03-28 | disposition home or self-care (01) ==
PROVIDERS: Emergency Provider Family Medicine; PCP Surgery
DX: J21.0 Acute bronchiolitis due to respiratory syncytial virus (principal)
CPT/HCPCS: 71045; 87502; 87634; 87635; 96374; 99284; A9270; J2405; J7030

== ENCOUNTER 2022-11-28 19:53 | Outpatient (CLI) | payer OTHER, SELFPAY | END 2022-11-28 19:54 | disposition home or self-care (01) | LOC: AMB 12-12 13:02 | PROVIDERS: PCP Surgery; Visit Provider Family Medicine | DX: S79.911A Unspecified injury of right hip, initial encounter (principal); R55 Syncope and collapse; V49.3XXA Car occupant (driver) (passenger) injured in unspecified nontraffic accident, initial encounter; Y92.410 Unspecified street and highway as the place of occurrence of the external cause | CPT/HCPCS: A0425; A0427 ==

== ENCOUNTER 2022-11-28 20:35 | Emergency (ER) | payer OTHER, SELFPAY ==
[2022-11-28 20:36] VITALS: BP 109/71; PULSE 86; RESP 20; TEMP 36.1; O2SAT 99; BMI 24.1
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
[2022-11-28 21:03] VITALS: O2SAT 94
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
[2022-11-28 21:18] LABS: Basophils Absolute Auto 0.04 K/uL (0.00-0.30); Basophils Percent Auto 0.4 % (0.0-3.0); Eosinophils Absolute Auto 0.36 K/uL (0.00-0.50); Eosinophils Percent Auto 3.8 % (0.0-7.0); Hematocrit 37.9 % (33.0-51.0); Hemoglobin* 12.6 gm/dL (12.0-16.0); Immature Granulocytes Abs Auto 0.01 K/uL (0.00-0.30); Immature Granulocytes Pct Auto 0.1 %; Lymphocytes Percent Auto 18.6 % (20-44); Mean Corpuscular HGB Conc 33 gm/dL (32-36); Mean Corpuscular Hemoglobin 31 pg (26-34); Mean Corpuscular Volume 94 fL (80-100); Monocytes Percent Auto 4.6 % (0.0-11.0); Neutrophils Percent Auto 72.5 % (42.0-72.0); Platelet Count* 217 K/uL (140-440); RDW Coefficient of Variation % 12.1 % (11.5-15.5); Red Blood Count 4.05 m/uL (4.00-5.20); White Blood Count* 9.45 K/uL (4.50-11.00)
[2022-11-28 21:24] LABS: Slide Review Reflex No
[2022-11-28] MEDS: 0.9 % SODIUM CHLORIDE 1000 ml 1,000 ML IV ×2 (21:26→21:37)
[2022-11-28 21:31] LABS: Chloride* 105 mmol/L (96-114); Potassium* 3.7 mmol/L (3.6-5.1); Sodium* 138 mmol/L (135-149)
[2022-11-28 21:33] LABS: Carbon Dioxide* 28 mmol/L (20-32); Creatinine* 0.7 mg/dL (0.5-1.5); Estimated Glomerular Filt Rate 125 ml/min
[2022-11-28 21:34] LABS: Blood Urea Nitrogen* 14 mg/dL (5-24); Calcium* 8.5 mg/dL (8.4-10.6); Glucose* 110 mg/dL (60-115)
[2022-11-28 21:35] LABS: Ethanol* < 0.01 % (0.01-0.03)
[2022-11-28 21:44] LABS: HCG Qualitative Serum* Negative (Negative)
[2022-11-28 22:36] LABS: Appearance Urine Clear (Clear); Bilirubin Urine Negative (Negative); Blood Urine 1+ (Negative); Color Urine Yellow (Yellow); Glucose Urine Negative (Negative); Ketones Urine Negative (Negative); Leukocyte Esterase Urine Negative (Negative); Nitrite Urine Negative (Negative); Protein Urine Negative (Negative); Urobilinogen Urine 0.2 (0.2-1.0)
[2022-11-28 22:46] LABS: Amphetamine Screen Urine POSITIVE (Negative); Barbiturate Screen Urine Negative (Negative); Benzodiazepines Screen Urine Negative (Negative); Cannabinoid Screen Urine POSITIVE (Negative); Cocaine Screen Urine Negative (Negative); Methadone Screen Urine Negative (Negative); Methamphetamines Screen Urine Negative (Negative); Opiate Screen Urine Negative (Negative); Oxycodone Screen Urine Negative (Negative); Phencyclidine Screen Urine Negative (Negative); Tricyclic Antidepressant Urine Negative (Negative)
[2022-11-28 22:51] LABS: Bacteria Urine Few; RBC Urine 0-2 (0-2); Squamous Epithelial Cell Urine Few (None-Few); WBC Urine 0-2 (0-5)
== END 2022-11-28 23:25 | disposition home or self-care (01) ==
PROVIDERS: Emergency Provider Family Medicine; PCP Surgery
DX: R55 Syncope and collapse (principal); V49.3XXA Car occupant (driver) (passenger) injured in unspecified nontraffic accident, initial encounter
CPT/HCPCS: 36415; 70450; 71046; 72125; 72170; 76604; 76705; 80048; 80306; 81001; 82077; 84484; 84703; 85025; 87086; 93005; 93308; 94761; 99284; 99291; G0390; J7030